=== PATIENT | female | born 1995 ===

== ENCOUNTER → 2019-01-31 | Outpatient (CLI) | payer BC ==
[~2019-01-31] MED LIST: CODACEE120 PO; CRUTCH3 USE; RXCODACESY PO
== END | disposition home or self-care (01) ==
LOC: LAB 12:28 → LAB SHORT 12:28
DX: N92.5 Other specified irregular menstruation (principal); N91.2 Amenorrhea, unspecified
CPT/HCPCS: 84702

== ENCOUNTER → 2023-06-22 | Outpatient (CLI) | payer OTHER | LOC: LAB SHORT 09:25 → LAB 09:25 | DX: O09.892 Supervision of other high risk pregnancies, second trimester (principal) | CPT/HCPCS: 87081; 87150 ==